=== PATIENT | female | born 1930 | race Native Hawaiian/Other Pacific Islander ===

== ENCOUNTER 2016-09-08 08:41 | Inpatient (IN) | payer OTHER ==
[~2016-09-08 08:41] MED LIST: ACET5TAB36 PO; AMLO2.5T PO; ARTIFI TEARS OP; ASA LO-DOSE81 MG OR; COLC0.6T6 PO; DICL1GEL2 TOP; FERR325T5 PO; GABA300C2 PO; KLOR-CON M2020 MEQ OR; LAXATIVE1 TAB OR; LEVO500I3 PO; MAALOX PO; MOBIC7.5 M1 PO; NEURONTIN 100M100 MG OR; OMEP20CA PO; PLAVIX75 MG PO; PRED10TA27 PO; RANO500T PO; REQUIP1 MG OR; SIMV20TA2 PO; TRAM50TA PO; TRIA75TA61 PO; VENLAFAXINE150 M1 PO; VITAMIN D400 MG OR
== END 2016-10-09 08:00 | disposition still patient (30) ==
LOC: PAVA 08:41
PROVIDERS: ADMIT Internal Medicine
DX: Z51.89 Encounter for other specified aftercare (principal)

== ENCOUNTER 2016-10-09 09:00 | Inpatient (IN) | payer OTHER | END 2016-11-09 08:42 | disposition still patient (30) | LOC: PAVA 09:00 | PROVIDERS: ADMIT Internal Medicine | DX: Z51.89 Encounter for other specified aftercare (principal) ==

== ENCOUNTER 2016-11-04 10:47 | Outpatient (CLI) | payer OTHER | END 2016-11-04 19:10 | disposition home or self-care (01) | LOC: RESP 10:47 | DX: R07.89 Other chest pain (principal) | CPT/HCPCS: 93005 ==

== ENCOUNTER 2016-11-04 16:24 | Emergency (ER) | payer OTHER ==
[~2016-11-04] VITALS: Ht 167.6 cm; Wt 81.2 kg
[2016-11-04 16:45] VITALS: BP 120/69; TEMP 98.2
[2016-11-04 19:49] LABS: PLATELET COUNT 291 K/uL (152-353)
[2016-11-04 20:00] LABS: POTASSIUM 3.1 mmol/L (3.6-5.2); SODIUM 139 mmol/L (136-145)
== END 2016-11-04 20:50 ==
LOC: ED 16:24
PROVIDERS: Specialist
DX: S09.8XXA Other specified injuries of head, initial encounter (principal); R41.0 Disorientation, unspecified; W05.0XXA Fall from non-moving wheelchair, initial encounter; Y92.122 Bedroom in nursing home as the place of occurrence of the external cause; R07.89 Other chest pain
CPT/HCPCS: 36415; 80048; 81000; 82550; 82553; 84484; 85027; 87077; 87086; 87088; 87186; 93005; 96372; 99283; J0690

== ENCOUNTER 2016-11-09 09:17 | Inpatient (IN) | payer OTHER | END 2016-12-07 08:18 | disposition still patient (30) | LOC: PAVA 09:17 | PROVIDERS: ADMIT Internal Medicine | DX: Z51.89 Encounter for other specified aftercare (principal) ==

== ENCOUNTER 2016-11-23 13:39 | Outpatient (CLI) | payer OTHER | END 2016-11-23 14:39 | disposition home or self-care (01) | LOC: LAB 13:39 | DX: R30.0 Dysuria (principal) | CPT/HCPCS: 81000; 87077; 87086; 87088; 87186 ==

== ENCOUNTER 2016-12-07 08:50 | Inpatient (IN) | payer OTHER ==
[2016-12-13] MEDS ORDERED: ALLO100T22 PO (08:05)
[2016-12-13] MEDS ORDERED: FURO40TA93 PO (08:06)
[2016-12-13] MEDS ORDERED: ALUMSUS6 PO (08:11)
[2016-12-13] MEDS ORDERED: FLUTICASONE50 MCG (08:14)
[2016-12-13] MEDS ORDERED: CALCIUM 600+D31 TAB PO (08:16)
== END 2017-01-07 08:03 | disposition still patient (30) ==
LOC: PAVA 08:50
PROVIDERS: ADMIT Internal Medicine
DX: N39.0 Urinary tract infection, site not specified (principal); D50.9 Iron deficiency anemia, unspecified; R06.02 Shortness of breath; M62.81 Muscle weakness (generalized); R26.9 Unspecified abnormalities of gait and mobility

== ENCOUNTER 2016-12-09 04:37 | Outpatient (CLI) | payer OTHER | END 2016-12-09 19:11 | disposition home or self-care (01) | LOC: LAB 04:37 | DX: Z79.01 Long term (current) use of anticoagulants (principal); R79.89 Other specified abnormal findings of blood chemistry | CPT/HCPCS: 82728 ==

== ENCOUNTER 2016-12-12 09:58 | Inpatient (IN) | payer OTHER ==
[~2016-12-12] VITALS: Ht 167.6 cm; Wt 79.4 kg
[2016-12-12] VITALS (10 sets, daily range): BP systolic 105–151; BP diastolic 53–86; TEMP 98.1–98.7; Ht 167.6 cm; Wt 79.4 kg
[2016-12-12 11:10] LABS: PLATELET COUNT 295 K/uL (152-353)
[2016-12-12 11:14] LABS: POTASSIUM 3.3 mmol/L (3.6-5.2); SODIUM 135 mmol/L (136-145)
[2016-12-13 00:10] VITALS: BP 121/57; TEMP 99.5
[2016-12-13 04:00] VITALS: BP 122/55; TEMP 100.4
[2016-12-13 06:36] LABS: PLATELET COUNT 252 K/uL (152-353)
[2016-12-13 08:00] VITALS: BP 132/60; TEMP 99.3
[2016-12-13] MEDS ORDERED: ALLO100T22 PO (08:05)
[2016-12-13] MEDS ORDERED: FURO40TA93 PO (08:06)
[2016-12-13] MEDS ORDERED: ALUMSUS6 PO (08:11)
[2016-12-13] MEDS ORDERED: FLUTICASONE50 MCG (08:14)
[2016-12-13] MEDS ORDERED: CALCIUM 600+D31 TAB PO (08:16)
[2016-12-13 11:57] VITALS: BP 143/61; TEMP 100.1
[2016-12-13 16:01] VITALS: BP 149/69; TEMP 98.9
[2016-12-13 20:00] VITALS: BP 114/56; TEMP 98.8
[2016-12-14 00:17] VITALS: BP 107/53; TEMP 98.4
[2016-12-14 04:00] VITALS: BP 113/62; TEMP 99.5
[2016-12-14 06:31] LABS: PLATELET COUNT 202 K/uL (152-353)
[2016-12-14 07:53] LABS: POTASSIUM 3.1 mmol/L (3.6-5.2)
[2016-12-14 08:00] VITALS: BP 123/65; TEMP 98.9
[2016-12-14 12:00] VITALS: BP 125/60; TEMP 98.5
[2016-12-14 16:00] VITALS: BP 124/62; TEMP 98
[2016-12-14 20:21] VITALS: BP 123/65; TEMP 98.9
[2016-12-15 00:10] VITALS: BP 104/53; TEMP 97.8
[2016-12-15 04:00] VITALS: BP 125/66; TEMP 98.4
[2016-12-15 07:58] VITALS: BP 134/71; TEMP 98.5
[2016-12-15 09:53] LABS: PLATELET COUNT 236 K/uL (152-353)
[2016-12-15 10:03] LABS: POTASSIUM 3.1 mmol/L (3.6-5.2); SODIUM 135 mmol/L (136-145)
[2016-12-15 12:00] VITALS: BP 113/52; TEMP 97.8
[2016-12-15 16:00] VITALS: BP 124/68; TEMP 98
[2016-12-15 20:00] VITALS: BP 133/69; TEMP 97.9
[2016-12-16 00:14] VITALS: BP 130/71; TEMP 98
[2016-12-16 05:12] VITALS: BP 159/78; TEMP 97.9
[2016-12-16 05:15] LABS: PLATELET COUNT 250 K/uL (152-353)
[2016-12-16 05:32] LABS: POTASSIUM 3.6 mmol/L (3.6-5.2); SODIUM 137 mmol/L (136-145)
[2016-12-16 08:00] VITALS: BP 121/61; TEMP 98.3
[2016-12-16 12:00] VITALS: BP 123/70; TEMP 98.1
== END 2016-12-16 16:25 | DRG 558 ==
LOC: ED 09:58 → MED/SURG 13:50
PROVIDERS: Emergency Medicine; Internal Medicine; ADMIT Emergency Medicine
DX: M62.82 Rhabdomyolysis (principal); N39.0 Urinary tract infection, site not specified; R53.1 Weakness; B96.20 Unspecified Escherichia coli [E. coli] as the cause of diseases classified elsewhere; Z79.01 Long term (current) use of anticoagulants; R79.89 Other specified abnormal findings of blood chemistry
CPT/HCPCS: 36415; 36600; 80048; 80053; 81000; 82550; 82553; 82728; 82805; 83605; 83735; 83880; 84443; 84484; 85027; 87077; 87086; 87088; 87186; 96365; 96372; 99284; J0696; J1650; J3490

== ENCOUNTER 2017-01-07 09:54 | Inpatient (IN) | payer OTHER ==
[~2017-01-07 09:54] MED LIST changes: +ALLO100T22 PO; +ALUMSUS6 PO; +CALCIUM 600+D31 TAB PO; +FLUTICASONE50 MCG; +FURO40TA93 PO
== END 2017-02-06 08:32 | disposition still patient (30) ==
LOC: PAVA 09:54
PROVIDERS: ADMIT Internal Medicine
DX: Z51.89 Encounter for other specified aftercare (principal)

== ENCOUNTER 2017-01-20 16:15 | Outpatient (CLI) | payer OTHER | END 2017-01-20 20:28 | disposition home or self-care (01) | LOC: LAB 16:15 | DX: Z87.440 Personal history of urinary (tract) infections (principal); R82.99 Other abnormal findings in urine | CPT/HCPCS: 81000; 87077; 87086; 87088; 87185; 87186 ==

== ENCOUNTER 2017-02-04 00:30 | Outpatient (CLI) | payer OTHER | END 2017-02-04 19:06 | disposition home or self-care (01) | LOC: LAB 00:30 | DX: Z16.24 Resistance to multiple antibiotics (principal) | CPT/HCPCS: 87081 ==

== ENCOUNTER 2017-02-06 08:55 | Inpatient (IN) | payer OTHER | END 2017-03-09 08:12 | disposition still patient (30) | LOC: PAVA 08:55 | PROVIDERS: ADMIT Internal Medicine | DX: Z51.89 Encounter for other specified aftercare (principal) ==

== ENCOUNTER 2017-03-09 08:30 | Inpatient (IN) | payer OTHER | END 2017-04-08 14:58 | disposition still patient (30) | LOC: PAVA 08:30 | PROVIDERS: ADMIT Internal Medicine | DX: Z51.89 Encounter for other specified aftercare (principal) ==

== ENCOUNTER 2017-03-13 06:16 | Outpatient (CLI) | payer OTHER ==
[2017-03-13 06:43] LABS: PLATELET COUNT 289 K/uL (152-353)
[2017-03-13 06:54] LABS: POTASSIUM 3.3 mmol/L (3.6-5.2)
== END 2017-03-13 19:21 | disposition home or self-care (01) ==
LOC: LAB 06:16
PROVIDERS: Internal Medicine
DX: Z79.899 Other long term (current) drug therapy (principal); E03.8 Other specified hypothyroidism; Z51.81 Encounter for therapeutic drug level monitoring
CPT/HCPCS: 80053; 80061; 84443; 84550; 85027

== ENCOUNTER 2017-03-16 11:24 | Outpatient (CLI) | payer OTHER | END 2017-03-16 12:30 | disposition home or self-care (01) | LOC: LAB 11:24 | DX: E87.6 Hypokalemia (principal) | CPT/HCPCS: 83735 ==

== ENCOUNTER 2017-03-30 17:33 | Outpatient (CLI) | payer OTHER | END 2017-03-30 20:06 | disposition home or self-care (01) | LOC: LAB 17:33 | DX: R30.0 Dysuria (principal) | CPT/HCPCS: 81000 ==

== ENCOUNTER 2017-04-08 15:14 | Inpatient (IN) | payer OTHER | END 2017-05-09 08:37 | disposition still patient (30) | LOC: PAVA 15:14 | PROVIDERS: ADMIT Internal Medicine | DX: Z51.89 Encounter for other specified aftercare (principal) ==

== ENCOUNTER 2017-04-24 06:01 | Outpatient (CLI) | payer OTHER ==
[2017-04-24 06:19] LABS: POTASSIUM 3.4 mmol/L (3.6-5.2)
== END 2017-04-24 07:05 | disposition home or self-care (01) ==
LOC: LAB 06:01
PROVIDERS: Internal Medicine
DX: D64.89 Other specified anemias (principal)
CPT/HCPCS: 36415; 80048

== ENCOUNTER 2017-05-09 09:26 | Inpatient (IN) | payer OTHER | END 2017-06-09 08:12 | disposition still patient (30) | LOC: PAVA 09:26 | PROVIDERS: ADMIT Internal Medicine | DX: Z51.89 Encounter for other specified aftercare (principal) ==

== ENCOUNTER 2017-06-09 08:34 | Inpatient (IN) | payer OTHER | END 2017-07-09 09:09 | disposition still patient (30) | LOC: PAVA 08:34 | PROVIDERS: ADMIT Internal Medicine | DX: Z51.89 Encounter for other specified aftercare (principal) ==

== ENCOUNTER 2017-06-12 06:28 | Outpatient (CLI) | payer OTHER | END 2017-06-12 18:58 | disposition home or self-care (01) | LOC: LAB 06:28 | DX: D64.9 Anemia, unspecified (principal); Z13.0 Encounter for screening for diseases of the blood and blood-forming organs and certain disorders involving the immune mechanism; E03.8 Other specified hypothyroidism; M79.7 Fibromyalgia | CPT/HCPCS: 82728 ==

== ENCOUNTER 2017-07-09 09:29 | Inpatient (IN) | payer OTHER | END 2017-08-09 10:26 | disposition still patient (30) | LOC: PAVA 09:29 | PROVIDERS: ADMIT Internal Medicine ==

== ENCOUNTER 2017-08-09 12:28 | Inpatient (IN) | payer OTHER | END 2017-09-08 08:14 | disposition still patient (30) | LOC: PAVA 12:28 | PROVIDERS: ADMIT Internal Medicine ==

== ENCOUNTER 2017-08-29 06:12 | Outpatient (CLI) | payer OTHER | END 2017-08-29 19:00 | disposition home or self-care (01) | LOC: LAB 06:12 | PROVIDERS: Internal Medicine | DX: R60.9 Edema, unspecified (principal) | CPT/HCPCS: 80048 ==

== ENCOUNTER 2017-09-08 09:09 | Inpatient (IN) | payer OTHER | END 2017-10-09 08:32 | disposition still patient (30) | LOC: PAVA 09:09 | PROVIDERS: ADMIT Internal Medicine ==

== ENCOUNTER 2017-09-13 06:27 | Outpatient (CLI) | payer OTHER ==
[2017-09-13 06:50] LABS: PLATELET COUNT 267 K/uL (152-353)
[2017-09-13 07:08] LABS: POTASSIUM 4.4 mmol/L (3.6-5.2)
== END 2017-09-13 21:08 | disposition home or self-care (01) ==
LOC: LAB 06:27
PROVIDERS: Internal Medicine
DX: E03.8 Other specified hypothyroidism (principal); I10 Essential (primary) hypertension
CPT/HCPCS: 80053; 84443; 84550; 85027

== ENCOUNTER 2017-09-26 07:35 | Outpatient (CLI) | payer OTHER | END 2017-09-26 17:59 | disposition home or self-care (01) | LOC: NM 07:35 | DX: R07.89 Other chest pain (principal) | CPT/HCPCS: A9500; J2785 ==

== ENCOUNTER 2017-10-09 09:15 | Inpatient (IN) | payer OTHER | END 2017-11-09 08:33 | disposition still patient (30) | LOC: PAVA 09:15 | PROVIDERS: ADMIT Internal Medicine ==

== ENCOUNTER 2017-11-09 09:42 | Inpatient (IN) | payer OTHER | END 2017-12-07 08:09 | disposition still patient (30) | LOC: PAVA 09:42 | PROVIDERS: ADMIT Internal Medicine ==

== ENCOUNTER 2017-12-07 08:59 | Inpatient (IN) | payer OTHER | END 2018-01-07 08:00 | disposition still patient (30) | LOC: PAVA 08:59 | PROVIDERS: ADMIT Internal Medicine ==

== ENCOUNTER 2018-01-07 09:00 | Inpatient (IN) | payer OTHER | END 2018-02-06 08:12 | disposition still patient (30) | LOC: PAVA 09:00 | PROVIDERS: ADMIT Internal Medicine ==

== ENCOUNTER 2018-01-22 17:43 | Outpatient (CLI) | payer OTHER | END 2018-01-22 20:11 | disposition home or self-care (01) | LOC: LAB 17:43 | DX: R35.0 Frequency of micturition (principal) | CPT/HCPCS: 81000; 87077; 87086; 87088; 87186 ==

== ENCOUNTER 2018-02-06 08:51 | Inpatient (IN) | payer OTHER | END 2018-03-09 08:21 | disposition still patient (30) | LOC: PAVA 08:51 | PROVIDERS: ADMIT Internal Medicine ==

== ENCOUNTER 2018-03-09 06:38 | Outpatient (CLI) | payer OTHER ==
[2018-03-09 08:08] LABS: PLATELET COUNT 352 K/uL (152-353)
== END 2018-03-09 19:19 | disposition home or self-care (01) ==
LOC: LAB 06:38
PROVIDERS: Internal Medicine
DX: E03.8 Other specified hypothyroidism (principal); I10 Essential (primary) hypertension; M06.09 Rheumatoid arthritis without rheumatoid factor, multiple sites
CPT/HCPCS: 36415; 80053; 80061; 84443; 84550; 85027

== ENCOUNTER 2018-03-09 08:44 | Inpatient (IN) | payer OTHER | END 2018-04-08 14:16 | disposition still patient (30) | LOC: PAVA 08:44 | PROVIDERS: ADMIT Internal Medicine ==

== ENCOUNTER 2018-03-30 10:21 | Outpatient (CLI) | payer OTHER | END 2018-03-30 19:17 | disposition home or self-care (01) | LOC: CT 10:21 | DX: L03.116 Cellulitis of left lower limb (principal) ==

== ENCOUNTER 2018-04-08 14:35 | Inpatient (IN) | payer OTHER | END 2018-05-09 08:00 | disposition still patient (30) | LOC: PAVA 14:35 | PROVIDERS: ADMIT Internal Medicine ==

== ENCOUNTER 2018-04-25 06:10 | Outpatient (CLI) | payer OTHER | END 2018-04-25 22:29 | disposition home or self-care (01) | LOC: LAB 06:10 | DX: D53.8 Other specified nutritional anemias (principal) | CPT/HCPCS: 82607 ==

== ENCOUNTER 2018-05-09 09:00 | Inpatient (IN) | payer OTHER | END 2018-06-09 09:58 | disposition still patient (30) | LOC: PAVA 09:00 | PROVIDERS: ADMIT Internal Medicine ==

== ENCOUNTER 2018-06-09 10:12 | Inpatient (IN) | payer OTHER | END 2018-07-09 08:41 | disposition still patient (30) | LOC: PAVA 10:12 | PROVIDERS: ADMIT Internal Medicine ==

== ENCOUNTER 2018-06-18 05:05 | Outpatient (CLI) | payer OTHER | END 2018-06-18 23:19 | disposition home or self-care (01) | LOC: LAB 05:05 | DX: R79.89 Other specified abnormal findings of blood chemistry (principal) | CPT/HCPCS: 82728 ==

== ENCOUNTER 2018-06-20 12:14 | Outpatient (CLI) | payer OTHER | END 2018-06-20 21:34 | disposition home or self-care (01) | LOC: RAD 12:14 | DX: M25.551 Pain in right hip (principal); R10.11 Right upper quadrant pain ==

== ENCOUNTER 2018-06-25 05:46 | Outpatient (CLI) | payer OTHER | END 2018-06-25 19:39 | disposition home or self-care (01) | LOC: LAB 05:46 | DX: R94.6 Abnormal results of thyroid function studies (principal) | CPT/HCPCS: 36415; 84443 ==

== ENCOUNTER 2018-07-09 09:03 | Inpatient (IN) | payer OTHER | END 2018-08-09 08:12 | disposition still patient (30) | LOC: PAVA 09:03 | PROVIDERS: ADMIT Internal Medicine ==

== ENCOUNTER 2018-08-08 01:38 | Emergency (ER) | payer OTHER ==
[~2018-08-08] VITALS: Ht 157.5 cm; Wt 75.8 kg
[2018-08-08 01:38] VITALS: TEMP 97.5
[2018-08-08 02:53] VITALS: BP 127/58
== END 2018-08-08 02:53 ==
LOC: ED 01:38
PROC: 0HQKXZZ Repair Right Lower Leg Skin, External Approach (ICD-10-PCS; principal; 2018-08-08)
DX: S81.811A Laceration without foreign body, right lower leg, initial encounter (principal); W01.198A Fall on same level from slipping, tripping and stumbling with subsequent striking against other object, initial encounter; Y92.128 Other place in nursing home as the place of occurrence of the external cause
CPT/HCPCS: 90471; 90715; 99283

== ENCOUNTER 2018-08-09 08:30 | Inpatient (IN) | payer OTHER | END 2018-09-08 08:06 | disposition still patient (30) | LOC: PAVA 08:30 | PROVIDERS: ADMIT Internal Medicine ==

== ENCOUNTER 2018-09-08 08:21 | Inpatient (IN) | payer OTHER | END 2018-10-09 10:22 | disposition still patient (30) | LOC: PAVA 08:21 | PROVIDERS: ADMIT Internal Medicine ==

== ENCOUNTER 2018-09-17 04:25 | Outpatient (CLI) | payer OTHER ==
[2018-09-17 06:29] LABS: PLATELET COUNT 436 K/uL (152-353)
[2018-09-17 06:52] LABS: POTASSIUM 4.9 mmol/L (3.6-5.2)
== END 2018-09-17 22:44 | disposition home or self-care (01) ==
LOC: LAB 04:25
PROVIDERS: Internal Medicine
DX: I10 Essential (primary) hypertension (principal); E03.9 Hypothyroidism, unspecified
CPT/HCPCS: 80053; 84443; 84550; 85027

== ENCOUNTER 2018-09-18 09:26 | Outpatient (CLI) | payer OTHER | END 2018-09-18 22:10 | disposition home or self-care (01) | LOC: RAD 09:26 | DX: Z78.0 Asymptomatic menopausal state (principal) ==

== ENCOUNTER 2018-10-09 10:59 | Inpatient (IN) | payer OTHER | END 2018-11-09 14:17 | disposition still patient (30) | LOC: PAVA 10:59 | PROVIDERS: ADMIT Internal Medicine ==

== ENCOUNTER 2018-10-29 04:35 | Outpatient (CLI) | payer OTHER | END 2018-10-29 22:10 | disposition home or self-care (01) | LOC: LAB 04:35 | DX: E03.9 Hypothyroidism, unspecified (principal) | CPT/HCPCS: 36415; 84443 ==

== ENCOUNTER 2018-11-09 14:22 | Inpatient (IN) | payer OTHER ==
[2018-11-11] MEDS ORDERED: DOCU100C10 PO (09:05)
[2018-11-11] MEDS ORDERED: ISOS30TA17 PO (09:05)
[2018-11-11] MEDS ORDERED: LEVO0.1T6 PO (09:06)
[2018-11-11] MEDS ORDERED: DENO60SO SC (09:06)
[2018-11-11] MEDS ORDERED: MYRBETRIQ50 MG PO (09:06)
[2018-11-11] MEDS ORDERED: SPIRONOLACT25 MG PO (09:07)
[2018-11-11] MEDS ORDERED: TRAMADOL HYDROC50 MG PO (09:08)
[2018-11-11] MEDS ORDERED: TRAMADOL HCL100 MG PO (09:09)
== END 2018-12-07 09:16 | disposition still patient (30) ==
LOC: PAVA 14:22
PROVIDERS: ADMIT Internal Medicine

== ENCOUNTER 2018-11-11 08:38 | Emergency (ER) | payer OTHER ==
[~2018-11-11] VITALS: Ht 157.5 cm; Wt 75.8 kg
[2018-11-11] MEDS ORDERED: ISOS30TA17 PO (09:05)
[2018-11-11] MEDS ORDERED: DOCU100C10 PO (09:05)
[2018-11-11] MEDS ORDERED: DENO60SO SC (09:06)
[2018-11-11] MEDS ORDERED: LEVO0.1T6 PO (09:06)
[2018-11-11] MEDS ORDERED: MYRBETRIQ50 MG PO (09:06)
[2018-11-11] MEDS ORDERED: SPIRONOLACT25 MG PO (09:07)
[2018-11-11] MEDS ORDERED: TRAMADOL HYDROC50 MG PO (09:08)
[2018-11-11] MEDS ORDERED: TRAMADOL HCL100 MG PO (09:09)
[2018-11-11 10:06] LABS: PLATELET COUNT 454 K/uL (152-353)
[2018-11-11 10:11] LABS: POTASSIUM 4.1 mmol/L (3.6-5.2)
[2018-11-11 11:05] VITALS: BP 140/68; TEMP 99.2
== END 2018-11-11 11:32 ==
LOC: ED 08:38
PROVIDERS: Family Medicine
DX: S00.83XA Contusion of other part of head, initial encounter (principal); S50.811A Abrasion of right forearm, initial encounter; S50.311A Abrasion of right elbow, initial encounter; F03.90 Unspecified dementia, unspecified severity, without behavioral disturbance, psychotic disturbance, mood disturbance, and anxiety; W07.XXXA Fall from chair, initial encounter; Y92.128 Other place in nursing home as the place of occurrence of the external cause
CPT/HCPCS: 80053; 85027; 99283

== ENCOUNTER 2018-11-22 04:43 | Outpatient (CLI) | payer OTHER ==
[~2018-11-22 04:43] MED LIST changes: +DENO60SO SC; +DOCU100C10 PO; +ISOS30TA17 PO; +LEVO0.1T6 PO; +MYRBETRIQ50 MG PO; +SPIRONOLACT25 MG PO; +TRAMADOL HCL100 MG PO; +TRAMADOL HYDROC50 MG PO
== END 2018-11-22 20:25 | disposition home or self-care (01) ==
LOC: LAB 04:43
DX: N39.0 Urinary tract infection, site not specified (principal)
CPT/HCPCS: 81000

== ENCOUNTER 2018-12-07 10:04 | Inpatient (IN) | payer OTHER | END 2019-01-07 07:56 | disposition still patient (30) | LOC: PAVA 10:04 | PROVIDERS: ADMIT Internal Medicine ==

== ENCOUNTER 2019-01-05 05:44 | Outpatient (CLI) | payer OTHER | END 2019-01-05 19:49 | disposition home or self-care (01) | LOC: LAB 05:44 | DX: K21.9 Gastro-esophageal reflux disease without esophagitis (principal); F41.8 Other specified anxiety disorders; F03.90 Unspecified dementia, unspecified severity, without behavioral disturbance, psychotic disturbance, mood disturbance, and anxiety; E03.9 Hypothyroidism, unspecified; M06.9 Rheumatoid arthritis, unspecified; M79.7 Fibromyalgia; D64.9 Anemia, unspecified | CPT/HCPCS: 82728 ==

== ENCOUNTER 2019-01-07 08:35 | Inpatient (IN) | payer OTHER ==
[2019-01-15] MEDS ORDERED: CELEXA20 MG PO (00:34)
[2019-01-15] MEDS ORDERED: FLONASE AL50 MCG/ACT INH (00:36)
[2019-01-15] MEDS ORDERED: GABA300C2 PO (00:37)
[2019-01-15] MEDS ORDERED: RANI150T78 PO (00:45)
[2019-01-15] MEDS ORDERED: NITR0.4S2 SL (00:50)
[2019-01-15] MEDS ORDERED: VITAMIN D3400 UNI1 PO (00:56)
[2019-01-15] MEDS ORDERED: TYLENOL325 M1 PO (00:57)
[2019-01-15] MEDS ORDERED: COUGH DM30 MG/5 ML PO (00:59)
== END 2019-02-06 09:43 | disposition still patient (30) ==
LOC: PAVA 08:35
PROVIDERS: ADMIT Internal Medicine

== ENCOUNTER 2019-01-14 21:10 | Inpatient (IN) | payer OTHER ==
[~2019-01-14] VITALS: Ht 167.6 cm; Wt 75.8 kg
[2019-01-14 21:13] VITALS: BP 127/51; TEMP 101.3
[2019-01-14 22:00] VITALS: BP 113/47
[2019-01-14 22:12] LABS: PLATELET COUNT 390 K/uL (152-353)
[2019-01-14 22:25] LABS: POTASSIUM 4.4 mmol/L (3.6-5.2); SODIUM 136 mmol/L (136-145)
[2019-01-14 22:30] VITALS: BP 100/48; TEMP 99.1
[2019-01-14 23:00] VITALS: BP 99/40
[2019-01-14 23:30] VITALS: BP 98/48
[2019-01-15] VITALS (50 sets, daily range): BP systolic 69–98; BP diastolic 25–61; TEMP 97.6–99.6; Ht 167.6 cm; Wt 75.8 kg
[2019-01-15] MEDS ORDERED: CELEXA20 MG PO (00:34)
[2019-01-15] MEDS ORDERED: FLONASE AL50 MCG/ACT INH (00:36)
[2019-01-15] MEDS ORDERED: GABA300C2 PO (00:37)
[2019-01-15] MEDS ORDERED: RANI150T78 PO (00:45)
[2019-01-15] MEDS ORDERED: NITR0.4S2 SL (00:50)
[2019-01-15] MEDS ORDERED: VITAMIN D3400 UNI1 PO (00:56)
[2019-01-15] MEDS ORDERED: TYLENOL325 M1 PO (00:57)
[2019-01-15] MEDS ORDERED: COUGH DM30 MG/5 ML PO (00:59)
[2019-01-15 06:28] LABS: PLATELET COUNT 321 K/uL (152-353)
[2019-01-15 07:45] LABS: POTASSIUM 4.5 mmol/L (3.6-5.2)
[2019-01-16] VITALS (26 sets, daily range): BP systolic 89–135; BP diastolic 39–76; TEMP 98–98.7
[2019-01-16 07:59] LABS: PLATELET COUNT 248 K/uL (152-353)
[2019-01-17] VITALS (14 sets, daily range): BP systolic 108–137; BP diastolic 54–86; TEMP 98.2–98.7
[2019-01-18] VITALS: BP 132/67; TEMP 98.2
[2019-01-18 04:00] VITALS: BP 118/64; TEMP 98
[2019-01-18 08:00] VITALS: BP 126/73; TEMP 98.2
== END 2019-01-18 12:55 | DRG 872 ==
LOC: ED 21:13 → ICU 01-15 00:02 → MED/SURG 01-17 12:00
PROVIDERS: Internal Medicine; ADMIT Internal Medicine
PROC: 30233N1 Transfusion of Nonautologous Red Blood Cells into Peripheral Vein, Percutaneous Approach (ICD-10-PCS; principal; 2019-01-15)
DX: A41.89 Other specified sepsis (principal); N39.0 Urinary tract infection, site not specified; N18.4 Chronic kidney disease, stage 4 (severe); N17.8 Other acute kidney failure; I48.91 Unspecified atrial fibrillation; I12.9 Hypertensive chronic kidney disease with stage 1 through stage 4 chronic kidney disease, or unspecified chronic kidney disease; G30.8 Other Alzheimer's disease; F02.80 Dementia in other diseases classified elsewhere, unspecified severity, without behavioral disturbance, psychotic disturbance, mood disturbance, and anxiety; I95.89 Other hypotension; I25.10 Atherosclerotic heart disease of native coronary artery without angina pectoris; R41.82 Altered mental status, unspecified; E03.8 Other specified hypothyroidism; I25.2 Old myocardial infarction; M79.7 Fibromyalgia; B96.20 Unspecified Escherichia coli [E. coli] as the cause of diseases classified elsewhere; D64.89 Other specified anemias
CPT/HCPCS: 36415; 80053; 81000; 82272; 82550; 82553; 83605; 84443; 84484; 85027; 86850; 86900; 86901; 86922; 87040; 87077; 87086; 87088; 87186; 93005; 94760; 96365; 96366; 99285; J1956; J0132; J0696; J1650; J2185; J2405; J2543; P9016

== ENCOUNTER 2019-02-06 11:04 | Inpatient (IN) | payer OTHER ==
[~2019-02-06 11:04] MED LIST changes: +CELEXA20 MG PO; +COUGH DM30 MG/5 ML PO; +FLONASE AL50 MCG/ACT INH; +NITR0.4S2 SL; +RANI150T78 PO; +TYLENOL325 M1 PO; +VITAMIN D3400 UNI1 PO
== END 2019-03-09 08:13 | disposition still patient (30) ==
LOC: PAVA 11:04
PROVIDERS: ADMIT Internal Medicine
DX: Z51.89 Encounter for other specified aftercare (principal)

== ENCOUNTER 2019-03-09 08:29 | Inpatient (IN) | payer OTHER | END 2019-04-08 08:31 | disposition still patient (30) | LOC: PAVA 08:29 | PROVIDERS: ADMIT Internal Medicine ==

== ENCOUNTER 2019-03-11 04:59 | Outpatient (CLI) | payer OTHER ==
[2019-03-11 05:56] LABS: PLATELET COUNT 228 K/uL (152-353)
[2019-03-11 06:50] LABS: POTASSIUM 4.5 mmol/L (3.6-5.2)
== END 2019-03-11 19:08 | disposition home or self-care (01) ==
LOC: LAB 04:59
PROVIDERS: Internal Medicine
DX: I10 Essential (primary) hypertension (principal)
CPT/HCPCS: 36415; 80053; 80061; 84550; 85027

== ENCOUNTER 2019-04-08 09:20 | Inpatient (IN) | payer OTHER | END 2019-05-09 09:08 | disposition still patient (30) | LOC: PAVA 09:20 | PROVIDERS: ADMIT Internal Medicine ==

== ENCOUNTER 2019-05-09 10:08 | Inpatient (IN) | payer OTHER | END 2019-06-09 15:59 | disposition still patient (30) | LOC: PAVA 10:08 | PROVIDERS: ADMIT Internal Medicine ==

== ENCOUNTER 2019-06-09 03:53 | Outpatient (CLI) | payer OTHER | END 2019-06-09 23:59 | LOC: LAB 03:53 | DX: R79.89 Other specified abnormal findings of blood chemistry (principal) | CPT/HCPCS: 82728 ==

== ENCOUNTER 2019-06-09 16:08 | Inpatient (IN) | payer OTHER | END 2019-07-09 08:06 | disposition still patient (30) | LOC: PAVA 16:08 | PROVIDERS: ADMIT Internal Medicine ==

== ENCOUNTER 2019-07-01 12:51 | Outpatient (CLI) | payer OTHER | END 2019-07-01 23:12 | disposition home or self-care (01) | LOC: LAB 12:51 | DX: M10.9 Gout, unspecified (principal) | CPT/HCPCS: 36415; 84550 ==

== ENCOUNTER 2019-07-09 09:14 | Inpatient (IN) | payer OTHER | END 2019-08-09 08:59 | disposition still patient (30) | LOC: PAVA 09:14 | PROVIDERS: ADMIT Internal Medicine ==

== ENCOUNTER 2019-08-09 11:01 | Inpatient (IN) | payer OTHER | END 2019-09-08 08:00 | disposition still patient (30) | LOC: PAVA 11:01 | PROVIDERS: ADMIT Internal Medicine ==

== ENCOUNTER 2019-09-08 10:00 | Inpatient (IN) | payer OTHER | END 2019-10-09 08:00 | disposition still patient (30) | LOC: PAVA 10:00 | PROVIDERS: ADMIT Internal Medicine ==

== ENCOUNTER 2019-09-10 06:25 | Outpatient (CLI) | payer OTHER ==
[2019-09-10 06:38] LABS: PLATELET COUNT 373 K/uL (152-353)
== END 2019-09-10 20:13 | disposition home or self-care (01) ==
LOC: LAB 06:25
PROVIDERS: Internal Medicine
DX: I10 Essential (primary) hypertension (principal); E03.8 Other specified hypothyroidism; M10.9 Gout, unspecified
CPT/HCPCS: 80053; 84443; 84550; 85027

== ENCOUNTER 2019-09-17 10:55 | Outpatient (CLI) | payer OTHER | END 2019-09-17 20:59 | disposition home or self-care (01) | LOC: CT 10:55 | DX: S09.8XXA Other specified injuries of head, initial encounter (principal); W19.XXXA Unspecified fall, initial encounter ==

== ENCOUNTER 2019-10-09 08:28 | Inpatient (IN) | payer OTHER | END 2019-11-09 09:32 | disposition still patient (30) | LOC: PAVA 08:28 | PROVIDERS: ADMIT Internal Medicine ==

== ENCOUNTER 2019-11-09 09:49 | Inpatient (IN) | payer OTHER | END 2019-12-08 12:46 | disposition still patient (30) | LOC: PAVA 09:49 | PROVIDERS: ADMIT Internal Medicine ==

== ENCOUNTER 2019-12-08 13:05 | Inpatient (IN) | payer OTHER | END 2020-01-08 08:59 | disposition still patient (30) | LOC: PAVA 13:05 | PROVIDERS: ADMIT Internal Medicine ==

== ENCOUNTER 2020-01-08 09:24 | Inpatient (IN) | payer OTHER | END 2020-02-07 08:04 | disposition still patient (30) | LOC: PAVA 09:24 | PROVIDERS: ADMIT Internal Medicine ==

== ENCOUNTER 2020-02-07 08:53 | Inpatient (IN) | payer OTHER | END 2020-03-09 08:12 | disposition still patient (30) | LOC: PAVA 08:53 | PROVIDERS: ADMIT Internal Medicine | CPT/HCPCS: 87635; U0002 ==

== ENCOUNTER 2020-02-08 10:57 | Outpatient (CLI) | payer OTHER | END 2020-02-08 23:41 | disposition home or self-care (01) | LOC: LABW 10:57 | DX: R19.7 Diarrhea, unspecified (principal); R19.5 Other fecal abnormalities | CPT/HCPCS: 83630; 87015; 87045; 87324; 87328; 87329; 87449; 87899 ==

== ENCOUNTER 2020-03-09 07:23 | Outpatient (CLI) | payer OTHER ==
[2020-03-09 08:06] LABS: PLATELET COUNT 350 K/uL (152-353)
[2020-03-09 08:52] LABS: POTASSIUM 4.2 mmol/L (3.6-5.2)
== END 2020-03-09 19:50 | disposition home or self-care (01) ==
LOC: LAB 07:23
PROVIDERS: Internal Medicine
DX: I25.10 Atherosclerotic heart disease of native coronary artery without angina pectoris (principal); D50.8 Other iron deficiency anemias; Z79.899 Other long term (current) drug therapy
CPT/HCPCS: 80053; 80061; 82728; 84443; 84550; 85027

== ENCOUNTER 2020-03-09 08:43 | Inpatient (IN) | payer OTHER | END 2020-04-08 08:26 | disposition still patient (30) | LOC: PAVA 08:43 | PROVIDERS: ADMIT Internal Medicine | CPT/HCPCS: 87635; U0002 ==

== ENCOUNTER 2020-03-10 14:32 | Emergency (ER) | payer OTHER ==
[~2020-03-10] VITALS: Ht 160 cm; Wt 62.6 kg
[2020-03-10 14:55] VITALS: TEMP 98.8
[2020-03-10 17:04] VITALS: BP 111/67
== END 2020-03-10 17:32 ==
LOC: ED 14:32
DX: S00.83XA Contusion of other part of head, initial encounter (principal); S51.011A Laceration without foreign body of right elbow, initial encounter; S70.02XA Contusion of left hip, initial encounter; S70.01XA Contusion of right hip, initial encounter; F03.90 Unspecified dementia, unspecified severity, without behavioral disturbance, psychotic disturbance, mood disturbance, and anxiety; W18.39XA Other fall on same level, initial encounter; Y92.238 Other place in hospital as the place of occurrence of the external cause
CPT/HCPCS: 99283; J7040

== ENCOUNTER 2020-04-08 09:51 | Inpatient (IN) | payer OTHER ==
[2020-05-05] MEDS ORDERED: CALCIUM 600+D 61 TA1 PO (19:20)
[2020-05-05] MEDS ORDERED: CELEXA20 MG PO (19:21)
[2020-05-05] MEDS ORDERED: CLOPIDOGREL75 MG PO (19:22)
[2020-05-05] MEDS ORDERED: ARNUITY EL50 MCG/ACT INH (19:26)
[2020-05-05] MEDS ORDERED: FURO40TA93 PO (19:27)
[2020-05-05] MEDS ORDERED: ISOSORBID1 PO (19:30)
[2020-05-05] MEDS ORDERED: TRIA37.541 PO (19:35)
[2020-05-05] MEDS ORDERED: MULTIVITAMIN AD1 TAB PO (19:37)
[2020-05-05] MEDS ORDERED: MYRBETRIQ50 MG PO (19:40)
[2020-05-05] MEDS ORDERED: PREDNISONE5 M1 PO (19:42)
[2020-05-05] MEDS ORDERED: OMEP40CA PO (19:43)
[2020-05-05] MEDS ORDERED: DENO60SO SC (19:47)
[2020-05-05] MEDS ORDERED: SENNA PLUS 50-81 CAP PO (19:48)
[2020-05-05] MEDS ORDERED: ALLO300T23 PO (19:49)
[2020-05-05] MEDS ORDERED: TIMOLOL MAL0.5 % IO (19:54)
[2020-05-05] MEDS ORDERED: GABA300C2 PO (19:55)
[2020-05-05] MEDS ORDERED: DIPH25CA90 PO (19:56)
[2020-05-05] MEDS ORDERED: GUAIFENESIN DM PO (19:57)
[2020-05-05] MEDS ORDERED: POTA20TA4 PO (19:59)
[2020-05-05] MEDS ORDERED: ROPI5T PO (20:03)
[2020-05-05] MEDS ORDERED: SPIRONOLACT25 MG PO (20:05)
[2020-05-05] MEDS ORDERED: TRAMADOL HYDROC50 MG PO (20:08)
[2020-05-05] MEDS ORDERED: NITROSTAT0.4 MG SL (20:09)
[2020-05-05] MEDS ORDERED: TYLENOL325 MG PO (20:11)
[2020-05-05] MEDS ORDERED: ALUMSUS6 PO (20:11)
[2020-05-05] MEDS ORDERED: VITAMIN D7 PO (20:14)
[2020-05-05] MEDS ORDERED: DICL1GEL2 TOP (20:15)
[2020-05-05] MEDS ORDERED: ONDA4TAB3 PO (20:16)
== END 2020-05-09 08:23 | disposition still patient (30) ==
LOC: PAVA 09:51
PROVIDERS: ADMIT Internal Medicine

== ENCOUNTER 2020-05-05 09:20 | Inpatient (IN) | payer OTHER ==
[2020-05-05] VITALS (9 sets, daily range): BP systolic 84–156; BP diastolic 43–89; TEMP 97.6–99.4; Ht 167.6 cm; Wt 69.5 kg
[~2020-05-05] VITALS: Ht 167.6 cm; Wt 69.5 kg
[2020-05-05 10:09] LABS: PLATELET COUNT 325 K/uL (152-353)
[2020-05-05 11:37] LABS: PARTIAL THROMBOPLASTIN TIME 25.5 SECONDS (24.5-33.6)
[2020-05-05 12:57] LABS: POTASSIUM 4.4 mmol/L (3.6-5.2)
[2020-05-05] MEDS ORDERED: CALCIUM 600+D 61 TA1 PO (19:20)
[2020-05-05] MEDS ORDERED: CELEXA20 MG PO (19:21)
[2020-05-05] MEDS ORDERED: CLOPIDOGREL75 MG PO (19:22)
[2020-05-05] MEDS ORDERED: ARNUITY EL50 MCG/ACT INH (19:26)
[2020-05-05] MEDS ORDERED: FURO40TA93 PO (19:27)
[2020-05-05] MEDS ORDERED: ISOSORBID1 PO (19:30)
[2020-05-05] MEDS ORDERED: TRIA37.541 PO (19:35)
[2020-05-05] MEDS ORDERED: MULTIVITAMIN AD1 TAB PO (19:37)
[2020-05-05] MEDS ORDERED: MYRBETRIQ50 MG PO (19:40)
[2020-05-05] MEDS ORDERED: PREDNISONE5 M1 PO (19:42)
[2020-05-05] MEDS ORDERED: OMEP40CA PO (19:43)
[2020-05-05] MEDS ORDERED: DENO60SO SC (19:47)
[2020-05-05] MEDS ORDERED: SENNA PLUS 50-81 CAP PO (19:48)
[2020-05-05] MEDS ORDERED: ALLO300T23 PO (19:49)
[2020-05-05] MEDS ORDERED: TIMOLOL MAL0.5 % IO (19:54)
[2020-05-05] MEDS ORDERED: GABA300C2 PO (19:55)
[2020-05-05] MEDS ORDERED: DIPH25CA90 PO (19:56)
[2020-05-05] MEDS ORDERED: GUAIFENESIN DM PO (19:57)
[2020-05-05] MEDS ORDERED: POTA20TA4 PO (19:59)
[2020-05-05] MEDS ORDERED: ROPI5T PO (20:03)
[2020-05-05] MEDS ORDERED: SPIRONOLACT25 MG PO (20:05)
[2020-05-05] MEDS ORDERED: TRAMADOL HYDROC50 MG PO (20:08)
[2020-05-05] MEDS ORDERED: NITROSTAT0.4 MG SL (20:09)
[2020-05-05] MEDS ORDERED: ALUMSUS6 PO (20:11)
[2020-05-05] MEDS ORDERED: TYLENOL325 MG PO (20:11)
[2020-05-05] MEDS ORDERED: VITAMIN D7 PO (20:14)
[2020-05-05] MEDS ORDERED: DICL1GEL2 TOP (20:15)
[2020-05-05] MEDS ORDERED: ONDA4TAB3 PO (20:16)
[2020-05-06 00:26] VITALS: BP 136/69; TEMP 98.4
[2020-05-06 03:41] VITALS: BP 130/73; TEMP 98.3
[2020-05-06 06:36] LABS: PLATELET COUNT 313 K/uL (152-353)
[2020-05-06 06:43] LABS: POTASSIUM 4.3 mmol/L (3.6-5.2)
[2020-05-06 07:53] VITALS: BP 101/49; TEMP 97.9
[2020-05-06 12:00] VITALS: BP 131/60; TEMP 98.4
[2020-05-06 16:00] VITALS: BP 100/54; TEMP 98.6
[2020-05-06 20:00] VITALS: BP 149/64; TEMP 98.5
[2020-05-07] VITALS (7 sets, daily range): BP systolic 110–170; BP diastolic 52–78; TEMP 98.3–100.4
[2020-05-07 05:14] LABS: POTASSIUM 3.9 mmol/L (3.6-5.2)
[2020-05-07 05:31] LABS: PLATELET COUNT 194 K/uL (152-353)
[2020-05-08 04:00] VITALS: BP 126/68; TEMP 98.3
[2020-05-08 04:58] LABS: PLATELET COUNT 317 K/uL (152-353); POTASSIUM 3.9 mmol/L (3.6-5.2)
[2020-05-08 08:00] VITALS: BP 128/55; TEMP 98.9
[2020-05-08 12:00] VITALS: BP 127/58; TEMP 98
[2020-05-08 16:00] VITALS: BP 108/54; TEMP 97.6
[2020-05-08 20:00] VITALS: BP 122/54; TEMP 99.7
[2020-05-09 00:18] VITALS: BP 129/63; TEMP 99.5
[2020-05-09 04:00] VITALS: BP 126/66; TEMP 99.6
[2020-05-09 05:49] LABS: PLATELET COUNT 291 K/uL (152-353)
[2020-05-09 05:51] LABS: POTASSIUM 3.8 mmol/L (3.6-5.2)
[2020-05-09 08:00] VITALS: BP 136/57; TEMP 99.7
[2020-05-09 12:00] VITALS: BP 117/60; TEMP 100.4
[2020-05-09 16:00] VITALS: BP 123/53; TEMP 101.6
[2020-05-09 20:23] VITALS: BP 150/55; TEMP 98.6
[2020-05-10] VITALS (7 sets, daily range): BP systolic 104–150; BP diastolic 50–62; TEMP 98.1–101.6
[2020-05-10 06:26] LABS: PLATELET COUNT 235 K/uL (152-353)
[2020-05-10 06:29] LABS: POTASSIUM 3.5 mmol/L (3.6-5.2)
[2020-05-11 04:28] VITALS: BP 128/60; TEMP 98.1
[2020-05-11 06:08] LABS: PLATELET COUNT 232 K/uL (152-353)
[2020-05-11 06:15] LABS: POTASSIUM 3.4 mmol/L (3.6-5.2)
[2020-05-11 08:10] VITALS: BP 164/57; TEMP 99.5
[2020-05-11 12:00] VITALS: BP 120/63; TEMP 96.8
[2020-05-11 16:00] VITALS: BP 114/51; TEMP 100.4
[2020-05-11 20:00] VITALS: BP 113/50; TEMP 98.1
[2020-05-12] VITALS: BP 120/68; TEMP 98.6
[2020-05-12 03:57] VITALS: BP 136/70; TEMP 98.7
[2020-05-12 08:00] VITALS: BP 123/48; TEMP 98.5
[2020-05-12] MEDS ORDERED: SPIR50TA8 PO (11:24)
[2020-05-12] MEDS ORDERED: LEVAQUIN250 MG PO (11:25)
[2020-05-12 12:00] VITALS: BP 119/48; TEMP 98.9
== END 2020-05-12 11:17 | DRG 193 ==
LOC: ED 09:27 → MED/SURG 13:30
PROVIDERS: Internal Medicine Endocrinology, Diabetes & Metabolism; ADMIT Family Medicine
DX: J18.8 Other pneumonia, unspecified organism (principal); G92 Toxic encephalopathy; N39.0 Urinary tract infection, site not specified; N17.9 Acute kidney failure, unspecified; I13.0 Hypertensive heart and chronic kidney disease with heart failure and stage 1 through stage 4 chronic kidney disease, or unspecified chronic kidney disease; E03.8 Other specified hypothyroidism; M10.9 Gout, unspecified; I25.10 Atherosclerotic heart disease of native coronary artery without angina pectoris; F41.8 Other specified anxiety disorders; F03.90 Unspecified dementia, unspecified severity, without behavioral disturbance, psychotic disturbance, mood disturbance, and anxiety; G25.81 Restless legs syndrome; K21.9 Gastro-esophageal reflux disease without esophagitis; M79.7 Fibromyalgia; N18.3 Chronic kidney disease, stage 3 (moderate); I50.89 Other heart failure; G62.89 Other specified polyneuropathies; B96.20 Unspecified Escherichia coli [E. coli] as the cause of diseases classified elsewhere
CPT/HCPCS: 36415; 80048; 80053; 81000; 83605; 84484; 85027; 85610; 85730; 87040; 87077; 87086; 87088; 87186; 87635; 93005; 94760; 96365; 99284; J1956; G2023; J0456; J0696; J1650; J2543; J3490; U0003

== ENCOUNTER 2020-05-09 08:59 | Inpatient (IN) | payer OTHER ==
[~2020-05-09 08:59] MED LIST changes: +ALLO300T23 PO; +ARNUITY EL50 MCG/ACT INH; +CALCIUM 600+D 61 TA1 PO; +CLOPIDOGREL75 MG PO; +DIPH25CA90 PO; +GUAIFENESIN DM PO; +ISOSORBID1 PO; +MULTIVITAMIN AD1 TAB PO; +NITROSTAT0.4 MG SL; +OMEP40CA PO; +ONDA4TAB3 PO; +POTA20TA4 PO; +PREDNISONE5 M1 PO; +ROPI5T PO; +SENNA PLUS 50-81 CAP PO; +TIMOLOL MAL0.5 % IO; +TRIA37.541 PO; +TYLENOL325 MG PO; +VITAMIN D7 PO
[2020-05-12] MEDS ORDERED: SPIR50TA8 PO (11:24)
[2020-05-12] MEDS ORDERED: LEVAQUIN250 MG PO (11:25)
== END 2020-06-09 10:39 | disposition still patient (30) ==
LOC: PAVA 08:59
PROVIDERS: ADMIT Internal Medicine
CPT/HCPCS: 84443

== ENCOUNTER 2020-06-09 11:18 | Inpatient (IN) | payer OTHER ==
[~2020-06-09 11:18] MED LIST changes: +LEVAQUIN250 MG PO; +SPIR50TA8 PO
== END 2020-07-09 09:28 | disposition still patient (30) ==
LOC: PAVA 11:18
PROVIDERS: ADMIT Internal Medicine

== ENCOUNTER 2020-06-18 07:20 | Outpatient (CLI) | payer OTHER | END 2020-06-18 23:00 | disposition home or self-care (01) | LOC: LAB 07:20 | DX: Z13.1 Encounter for screening for diabetes mellitus (principal); Z79.899 Other long term (current) drug therapy | CPT/HCPCS: 83036 ==

== ENCOUNTER 2020-07-09 10:46 | Inpatient (IN) | payer OTHER | END 2020-08-09 08:00 | disposition still patient (30) | LOC: PAVA 10:46 | PROVIDERS: ADMIT Internal Medicine ==

== ENCOUNTER 2020-07-21 11:33 | Outpatient (CLI) | payer OTHER ==
[2020-07-21 12:07] LABS: PLATELET COUNT 414 K/uL (152-353)
[2020-07-21 12:15] LABS: PARTIAL THROMBOPLASTIN TIME 28.4 SECONDS (24.5-33.6)
== END 2020-07-21 19:11 | disposition home or self-care (01) ==
LOC: LAB 11:33
PROVIDERS: Internal Medicine
DX: D69.2 Other nonthrombocytopenic purpura (principal)
CPT/HCPCS: 85027; 85610; 85730

== ENCOUNTER 2020-08-09 09:00 | Inpatient (IN) | payer OTHER | END 2020-09-08 08:34 | disposition still patient (30) | LOC: PAVA 09:00 | PROVIDERS: ADMIT Internal Medicine; ATTEND Internal Medicine ==

== ENCOUNTER 2020-09-08 06:38 | Outpatient (CLI) | payer OTHER ==
[2020-09-08 07:15] LABS: PLATELET COUNT 347 K/uL (152-353)
[2020-09-08 09:18] LABS: POTASSIUM 4.5 mmol/L (3.6-5.2)
== END 2020-09-08 22:20 | disposition home or self-care (01) ==
LOC: LAB 06:38
PROVIDERS: ATTEND Internal Medicine
DX: D50.8 Other iron deficiency anemias (principal); Z79.899 Other long term (current) drug therapy
CPT/HCPCS: 80053; 82728; 84443; 84550; 85027

== ENCOUNTER 2020-09-08 08:58 | Inpatient (IN) | payer OTHER | END 2020-10-09 08:28 | disposition still patient (30) | LOC: PAVA 08:58 | PROVIDERS: ADMIT Internal Medicine; ATTEND Internal Medicine ==

== ENCOUNTER 2020-09-22 14:55 | Outpatient (CLI) | payer OTHER | END 2020-09-22 22:04 | disposition home or self-care (01) | LOC: RAD 14:55 | PROVIDERS: ATTEND Internal Medicine | DX: N95.8 Other specified menopausal and perimenopausal disorders (principal) ==

== ENCOUNTER 2020-10-09 08:44 | Inpatient (IN) | payer OTHER | END 2020-11-09 13:10 | disposition still patient (30) | LOC: PAVA 08:44 | PROVIDERS: ADMIT Internal Medicine; ATTEND Internal Medicine ==